=== PATIENT | female | born 1955 | race Caucasian/White ===

== ENCOUNTER 2017-06-15 14:31 | Observation (INO) | payer SELFPAY ==
[2017-06-15 14:34] VITALS: BP 216/104; PULSE 73; RESP 12; TEMP 98.4; O2SAT 99
[2017-06-15 15:10] LABS: AUTOMATED NEUTROPHIL # 1.3 TH/MM3 (1.8-7.7); BASOPHIL % 0.5 % (0.0-2.0); EOSINOPHIL # 0.2 TH/MM3 (0-0.4); EOSINOPHIL % 5.2 % (0.0-4.0); HEMATOCRIT 42.4 % (35.0-46.0); HEMO FLAGS DIFF FINAL; LYMPH % 36.9 % (9.0-44.0); LYMPHOCYTE # 1.1 TH/MM3 (1.0-4.8); MEAN CELL VOLUME 89.3 FL (80.0-100.0); MEAN CORPUSCULAR HEMOGLOBIN 29.9 PG (27.0-34.0); MEAN CORPUSCULAR HGB CONC 33.5 % (32.0-36.0); MONO % 15.4 % (0.0-8.0); PLATELET COUNT 133 TH/MM3 (150-450); RED BLOOD COUNT 4.75 MIL/MM3 (4.00-5.30); RED CELL DISTRIBUTION WIDTH 14.8 % (11.6-17.2)
[2017-06-15 15:19] LABS: APTT (PATIENT) 34.1 SEC (24.3-30.1); INTERNATIONAL NORMALIZED RATIO 1.1 RATIO; PROTHROMBIN TIME - PATIENT 12.1 SEC (9.8-11.6)
[2017-06-15 15:38] LABS: ANION GAP 5 MEQ/L (5-15); BICARBONATE 27.7 MEQ/L (21.0-32.0); BLOOD UREA NITROGEN 18 MG/DL (7-18); CHLORIDE 106 MEQ/L (98-107); GLOMERULAR FILTRATION RATE 63 ML/MIN (>89); MAGNESIUM 2.4 MG/DL (1.5-2.5); SODIUM (NA) 139 MEQ/L (136-145)
[2017-06-15 15:41] LABS: CREATINE KINASE 67 U/L (26-192)
--- NOTE | 2017-06-15 16:07 | RADRPT ---
EXAM DATE/TIME: 06/15/2017 15:22 [place] COMPARISON: No previous studies available for comparison. INDICATIONS : Chest pressure, left arm pain and back pain today. MEDICAL HISTORY : None. SURGICAL HISTORY : None. ENCOUNTER: Initial ACUITY: 1 day PAIN SCORE: 8/10 LOCATION: Bilateral chest FINDINGS: PA and lateral views of the chest demonstrate the lungs to be symmetrically aerated without evidence of mass, infiltrate or effusion. The cardiomediastinal contours are unremarkable. Osseous structure s are intact. Scoliotic curvature. CONCLUSION: No acute disease. Edu Ybarra Jr., MD on June 15, 2017 at 16:04 Board Certified Radiologist. This report was verified electronically.
--- NOTE | 2017-06-15 16:38 | PD ---
HPI Chief Complaint: Chest Pain Time Seen by Provider: 16:32 Travel History International Travel<30 days: No Contact w/Intl Traveler<30days: No Traveled to known affect area: No History of Present Illness HPI 61-year-old female patient presents to the ER today because of left arm discomfort that initially was sharp and then started going into her chest, she states it felt pressure-like, but is now getting better, is about a 1-2 out of 10 now. She denies any nausea, shortness of breath, or any other symptoms. She also mentions a headache currently. She denies any previous episodes. Modifying Factors: None Associated Signs & Symptoms: Chest discomfort, left arm discomfort, headache Risk Factors: None PFSH Past Medical History Medical History: Denies Significant Hx Tetanus Vaccination: Unknown Influenza Vaccination: No ?: Not Menopausal: Yes Tubal Ligation: Yes Social History Alcohol Use: No Tobacco Use: No Substance Use: No Allergies-Medications (Allergen,Severity, Reaction): Coded Allergies: No Known Allergies (Unverified , 06/15/17) Reported Meds & Prescriptions Reported Meds & Active Scripts Active No Active Prescriptions or Reported Medications Review of Systems Except as stated in HPI: all other systems reviewed are Neg Physical Exam Narrative GENERAL: Well-developed elderly white female patient currently in no acute distress. Awake and oriented 3. SKIN: Focused skin assessment warm/dry. HEAD: Atraumatic. Normocephalic. EYES: Pupils equal and round. No scleral icterus. No injection or drainage. ENT: No nasal bleeding or discharge. Mucous membranes pink and moist. NECK: Trachea midline. No JVD. CARDIOVASCULAR: Regular rate and rhythm. No murmur appreciated. Pulses are present and equal bilaterally. RESPIRATORY: No accessory muscle use. Clear to auscultation. Breath sounds equal bilaterally. GASTROINTESTINAL: Abdomen soft, non-tender, nondistended. Hepatic and splenic margins not palpable. MUSCULOSKELETAL: No obvious deformities. No clubbing. No cyanosis. No edema. NEUROLOGICAL: Awake and alert. No obvious cranial nerve deficits. Motor grossly within normal limits. Normal speech. PSYCHIATRIC: Appropriate mood and affect; insight and judgment normal. Data Data Last Documented VS Vital Signs Date Time Temp Pulse Resp B/P (MAP) Pulse Ox O2 Delivery O2 Flow Rate FiO2 06/15/17 14:34 98.4 73 12 216/104 (141) 99 Orders Orders Electrocardiogram (06/15/17 14:40) Basic Metabolic Panel (Bmp) (06/15/17 14:40) Ckmb (Isoenzyme) Profile (06/15/17 14:40) Complete Blood Count With Diff (06/15/17 14:40) Magnesium (Mg) (06/15/17 14:40) Prothrombin Time / Inr (Pt) (06/15/17 14:40) Act Partial Throm Time (Ptt) (06/15/17 14:40) Troponin I (06/15/17 14:40) Lipase (06/15/17 14:40) Chest, Pa & Lat (06/15/17 14:40) Admit Order (Ed Use Only) (06/15/17 16:32) Labs Laboratory Tests Test 06/15/17 14:53 White Blood Count 3.0 TH/MM3 Red Blood Count 4.75 MIL/MM3 Hemoglobin 14.2 GM/DL Hematocrit 42.4 % Mean Corpuscular Volume 89.3 FL Mean Corpuscular Hemoglobin 29.9 PG Mean Corpuscular Hemoglobin Concent 33.5 % Red Cell Distribution Width 14.8 % Platelet Count 133 TH/MM3 Mean Platelet Volume 8.6 FL Neutrophils (%) (Auto) 42.0 % Lymphocytes (%) (Auto) 36.9 % Monocytes (%) (Auto) 15.4 % Eosinophils (%) (Auto) 5.2 % Basophils (%) (Auto) 0.5 % Neutrophils # (Auto) 1.3 TH/MM3 Lymphocytes # (Auto) 1.1 TH/MM3 Monocytes # (Auto) 0.5 TH/MM3 Eosinophils # (Auto) 0.2 TH/MM3 Basophils # (Auto) 0.0 TH/MM3 CBC Comment DIFF FINAL Differential Comment Prothrombin Time 12.1 SEC Prothromb Time International Ratio 1.1 RATIO Activated Partial Thromboplast Time 34.1 SEC Blood Urea Nitrogen 18 MG/DL Creatinine 0.90 MG/DL Random Glucose 123 MG/DL Calcium Level 8.9 MG/DL Magnesium Level 2.4 MG/DL Sodium Level 139 MEQ/L Potassium Level 4.0 MEQ/L Chloride Level 106 MEQ/L Carbon Dioxide Level 27.7 MEQ/L Anion Gap 5 MEQ/L Estimat Glomerular Filtration Rate 63 ML/MIN Total Creatine Kinase 67 U/L Troponin I LESS THAN 0.02 NG/ML Lipase 159 U/L MDM Medical Decision Making Medical Screen Exam Complete: Yes Emergency Medical Condition: Yes Medical Record Reviewed: Yes Interpretation(s) EKG shows NSR, no ST elevation or depression, and no arrhythmias. No significant T-wave inversions. Laboratory Tests Test 06/15/17 14:53 White Blood Count 3.0 TH/MM3 (4.0-11.0) Platelet Count 133 TH/MM3 (150-450) Monocytes (%) (Auto) 15.4 % (0.0-8.0) Eosinophils (%) (Auto) 5.2 % (0.0-4.0) Neutrophils # (Auto) 1.3 TH/MM3 (1.8-7.7) Prothrombin Time 12.1 SEC (9.8-11.6) Activated Partial Thromboplast Time 34.1 SEC (24.3-30.1) Random Glucose 123 MG/DL (74-106) Estimat Glomerular Filtration Rate 63 ML/MIN (>89) Troponin I LESS THAN 0.02 NG/ML Differential Diagnosis Chest pains: ACS versus dysrhythmias versus anxiety attack Narrative Course EKG did not show any signs of acute ST-T changes or any dysrhythmias. Chest x- rays unremarkable. Cardiac enzymes are negative. Patient's chest pain is improved now. At this point, my plan would be to admit her to chest pain center for further evaluation of chest pain. Diagnosis Primary Impression: Chest pain Admitting Information Admitting Physician Requests: Admit Scripts No Active Prescriptions or Reported Meds Uriah Brady MD Jun 15, 2017 16:38
[2017-06-15] MEDS ORDERED: ONDANSETRON HCL 4 MG/2 ML VIAL IV PUSH PRN (17:00)
[2017-06-15] MEDS ORDERED: NITROGLYCERIN 0.4 MG SL 25 TABS/BTL SL PRN (17:00)
[2017-06-15] MEDS ORDERED: ACETAMINOPHEN 500 MG CPLT PO PRN (17:00)
[2017-06-15] MEDS ORDERED: SODIUM CHLORIDE 0.9% FLUSH 10 ML FLUSH IV FLUSH PRN (17:00)
[2017-06-15 17:02] VITALS: BP 159/60; PULSE 65; RESP 14; O2SAT 99
--- NOTE | 2017-06-15 18:01 | HHI.HP ---
HPI Primary Care Physician No Primary Care Physician Chief Complaint Chest pain History of Present Illness 61-year-old female with no known medical problems, has not seen a primary care provider in 20 years, presents to emergency room for further evaluation of chest pressure. Onset this afternoon while reading. Location left arm, from shoulder to elbow, followed by pressure across her chest and back. Arm pain described as an ache. Severity 5/10. Duration 40 minutes. Associated symptoms include diaphoresis. Denied nausea, vomiting, or dyspnea. No known precipitating factors. No known relieving factors. States discomfort gradually went away. Denies similar pain in the past. Review of Systems General: No fatigue,weakness, fever, chills, recent illness, or change in appetite. Has not seen a general practitioner in 20 years. Works 2 jobs and on her day off cares for her elderly father. HEENT: No DIA, no vision changes, no nasal congestion or drainage CV: As stated above. No current CP or pressure. RESP: No SOB, cough, or wheeze. GI: No nausea, vomiting, bowel changes. No unintentional weight gain or weight loss. Endorses 15 pound weight gain last 1.5 years she attributes to decreased activity and diet. : No dysuria, urgency, frequency EXT: Chronic bilateral lower leg edema and varicosities. MS: No discomfort or change in ROM NEURO: No difficulty with balance, LOC, motor/sensory deficits PSYCH: No anxiety, depression SKIN: No rashes, no concerning lesions Past Family Social History Allergies: Coded Allergies: No Known Allergies (Unverified , 06/15/17) Past Medical History None Past Surgical History Tubal ligation Reported Medications Reported Meds & Active Scripts Active No Active Prescriptions or Reported Medications No vitamins or herbal supplements. Active Ordered Medications Current Medications Medications (Trade) Dose Ordered Sig/Jack Route Start Time Stop Time Status Last Admin (NS Flush) 2 ml UNSCH PRN IV FLUSH 06/15/17 17:00 (NS Flush) 2 ml BID IV FLUSH 06/15/17 21:00 (Tylenol) 500 mg Q4H PRN PO 06/15/17 17:00 (Zofran Inj) 4 mg Q6H PRN IV PUSH 06/15/17 17:00 (Nitrostat Sl) 0.4 mg Q5M PRN SL 06/15/17 17:00 (Aspirin) 325 mg DAILY PO 06/16/17 09:00 Family History Mother myocardial infarction at age 62. Social History No known diabetes, hypertension, or hyperlipidemia. Lifelong nonsmoker. Denies any alcohol or illegal drug use. . Works 2 jobs. Past cardiac testing None Physical Exam Vital Signs Vital Signs Date Time Temp Pulse Resp B/P (MAP) Pulse Ox O2 Delivery O2 Flow Rate FiO2 06/15/17 17:13 06/15/17 17:02 65 14 159/60 (93) 99 06/15/17 14:34 98.4 73 12 216/104 (141) 99 Physical Exam GENERAL: Alert WN, WD, NAD, pleasant, , obese female HEAD: NC, AT EYES: Sclera clear, conjunctiva without injection, pupils equal and round ENT: Mucous membranes pink and moist CV: RRR, without murmur, rub, gallop, no JVD, S1-S2 no S3-S4. RESP: Clear lungs throughout bilateral, no crackles, wheeze, rhonchi, symmetrical chest rise, nonlabored, able to speak in full sentences ABD: Soft, NT, ND, no masses, positive bowel tones, obese EXT: Pulses +24, +1 dependent bilateral lower extremity edema MS: Normal tone 4 extremities, no obvious deformities, full range of motion, bilateral lower extremities varicosities NEURO: CN II through CN XII grossly intact, motor strength 5/5 PSYCH: A+O 3, pleasant affect, appropriate speech, mood, insight and judgment SKIN: Normal turgor, normal texture, no lesions, no rashes, brisk cap refill, even hair distribution Laboratory Laboratory Tests Test 06/15/17 14:53 06/15/17 17:50 White Blood Count 3.0 Red Blood Count 4.75 Hemoglobin 14.2 Hematocrit 42.4 Mean Corpuscular Volume 89.3 Mean Corpuscular Hemoglobin 29.9 Mean Corpuscular Hemoglobin Concent 33.5 Red Cell Distribution Width 14.8 Platelet Count 133 Mean Platelet Volume 8.6 Neutrophils (%) (Auto) 42.0 Lymphocytes (%) (Auto) 36.9 Monocytes (%) (Auto) 15.4 Eosinophils (%) (Auto) 5.2 Basophils (%) (Auto) 0.5 Neutrophils # (Auto) 1.3 Lymphocytes # (Auto) 1.1 Monocytes # (Auto) 0.5 Eosinophils # (Auto) 0.2 Basophils # (Auto) 0.0 CBC Comment DIFF FINAL Differential Comment Prothrombin Time 12.1 Prothromb Time International Ratio 1.1 Activated Partial Thromboplast Time 34.1 Blood Urea Nitrogen 18 Creatinine 0.90 Random Glucose 123 Calcium Level 8.9 Magnesium Level 2.4 Sodium Level 139 Potassium Level 4.0 Chloride Level 106 Carbon Dioxide Level 27.7 Anion Gap 5 Estimat Glomerular Filtration Rate 63 Total Creatine Kinase 67 Troponin I LESS THAN 0.02 Lipase 159 Result Diagram: 06/15/17 1453 06/15/17 1453 Imaging Chest xray read by radiologist as no acute disease. Course EKG Normal sinus rhythm, axis deviation, no ST or T-segment changes Caprini VTE Risk Assessment Caprini VTE Risk Assessment: Mod/High Risk (score >= 2) Caprini Risk Assessment Model Point Value = 1 Point Value = 2 Point Value = 3 Point Value = 5 Age 41-60 Minor surgery BMI > 25 kg/m2 Swollen legs Varicose veins or History of unexplained or recurrent spontaneous Oral contraceptives or hormone replacement Sepsis (< 1 month) Serious lung disease, including pneumonia (< 1 month) Abnormal pulmonary function Acute myocardial infarction Congestive heart failure (< 1 month) History of inflammatory bowel disease Medical patient at bed rest Age 61-74 Arthroscopic surgery Major open surgery (> 45 min) Laparoscopic surgery (> 45 min) Malignancy Confined to bed (> 72 hours) Immobilizing plaster cast Central venous access Age >= 75 History of VTE Family history of VTE Factor V Leiden Prothrombin 30210I Lupus anticoagulant Anticardiolipin antibodies Elevated serum homocysteine Heparin-induced thrombocytopenia Other congenital or acquired thrombophilia Stroke (< 1 month) Elective arthroplasty Hip, pelvis, or leg fracture Acute spinal cord injury (< 1 month) Prophylaxis Regimen Total Risk Factor Score Risk Level Prophylaxis Regimen 0-1 Low Early ambulation 2 Moderate Order ONE of the following: *Sequential Compression Device (SCD) *Heparin 5000 units SQ BID 3-4 Higher Order ONE of the following medications: *Heparin 5000 units SQ TID *Enoxaparin/Lovenox 40 mg SQ daily (WT < 150 kg, CrCl > 30 mL/min) *Enoxaparin/Lovenox 30 mg SQ daily (WT < 150 kg, CrCl > 10-29 mL/min) *Enoxaparin/Lovenox 30 mg SQ BID (WT < 150 kg, CrCl > 30 mL/min) AND/OR *Sequential Compression Device (SCD) 5 or more Highest Order ONE of the following medications: *Heparin 5000 units SQ TID (Preferred with Epidurals) *Enoxaparin/Lovenox 40 mg SQ daily (WT < 150 kg, CrCl > 30 mL/min) *Enoxaparin/Lovenox 30 mg SQ daily (WT < 150 kg, CrCl > 10-29 mL/min) *Enoxaparin/Lovenox 30 mg SQ BID (WT < 150 kg, CrCl > 30 mL/min) AND *Sequential Compression Device (SCD) Assessment and Plan Assessment and Plan #1 Chest pain-[facility] chest pain center. Rule out with 3 sets of EKGs, cardiac enzymes, monitor overnight. Will be seen and evaluated by Dr. Keyla Johnson exam. Discussed likelihood of completing cardiac stress test in a.m. and this will be determined by [employer] worker. Patient grew up plan of care. Strongly encouraged and stressed the importance of establishing with a primary care provider. Information regarding [facility] and local [facility] discussed in length as currently she is uninsured. Made aware of other local clinics in the area as well. Importance of preventative care, medical management, and screening tools used in primary care discussed in length. Verbalizes importance of establishing with a PCP. Jenae Blas Jun 15, 2017 18:01
[2017-06-15 18:49] LABS: CREATINE KINASE 61 U/L (26-192)
[2017-06-15 19:20] VITALS: PULSE 64
[2017-06-15] MEDS ORDERED: SODIUM CHLORIDE 0.9% FLUSH 10 ML FLUSH IV FLUSH SCH (21:00)
[2017-06-15 21:35] VITALS: BP 169/89; PULSE 64; RESP 16; TEMP 98.1; O2SAT 95
[2017-06-15 22:00] LABS: CREATINE KINASE 47 U/L (26-192)
[2017-06-15 23:48] VITALS: BP 155/83; PULSE 62; RESP 17; TEMP 98; O2SAT 96
[2017-06-16 03:35] VITALS: PULSE 60
[2017-06-16 04:56] VITALS: BP 143/83; PULSE 65; RESP 16; TEMP 98.1; O2SAT 93
[2017-06-16 08:07] VITALS: O2SAT 97
[2017-06-16 08:16] VITALS: BP 167/89; PULSE 64; RESP 20; TEMP 98.1; O2SAT 95
[2017-06-16] MEDS ORDERED: amLODIPine BESYLATE 5 MG TAB PO SCH (09:00)
[2017-06-16] MEDS ORDERED: ASPIRIN 325 MG TAB PO SCH (09:00)
[2017-06-16] MEDS ORDERED: AMLO5TAB2 PO (10:12)
--- NOTE | 2017-06-16 10:13 | HHI.DCPOC ---
Discharge Care Plan Diagnosis: (1) Chest pain (2) Hypertension Goals to Promote Your Health * To prevent worsening of your condition and complications * To maintain your health at the optimal level Directions to Meet Your Goals Take your medications as prescribed Follow your dietary instruction Follow activity as directed Keep your appointments as scheduled Take your immunizations and boosters as scheduled If your symptoms worsen call your PCP, if no PCP go to Urgent Care Center or Emergency Room Smoking is Dangerous to Your Health. Avoid second hand smoke Call the 24-hour hour crisis hotline for domestic abuse at John Hurtado Jun 16, 2017 10:13
--- NOTE | 2017-06-16 14:41 | EKG ---
Date Performed: 06/15/2017 Time Performed: 14:44:46 PTAGE: 61 years EKG: Sinus rhythm BORDERLINE LEFT AXIS DEVIATION MINIMAL VOLTAGE CRITERIA FOR LVH, CONSIDER NORMAL VARIANT BORDERLINE ECG NO PREVIOUS TRACING DOCTOR: Keyla Johnson Interpretating Date/Time 06/16/2017 14:39:05
--- NOTE | 2017-06-16 14:42 | EKG ---
Date Performed: 06/15/2017 Time Performed: 18:46:36 PTAGE: 61 years EKG: Sinus rhythm MINIMAL VOLTAGE CRITERIA FOR LVH, CONSIDER NORMAL VARIANT BORDERLINE ECG Since PREVIOUS TRACING , no significant change noted PREVIOUS TRACIN06/15/2017 14.44 DOCTOR: Keyla Johnson Interpretating Date/Time 06/16/2017 14:39:42
--- NOTE | 2017-06-16 14:43 | EKG ---
Date Performed: 06/15/2017 Time Performed: 21:45:13 PTAGE: 61 years EKG: Sinus rhythm NORMAL ECG Since PREVIOUS TRACING , no significant change noted PREVIOUS TRACIN06/15/2017 18.46 DOCTOR: Keyla Johnson Interpretating Date/Time 06/16/2017 14:40:59
--- NOTE | 2017-06-16 14:45 | TR ---
Date Performed: 06/16/2017 Time Performed: 09:09:40 DOCTOR: Keyla Johnson DRUG LIST: CLINICAL HISTORY: REASON FOR TEST: Chest pain REASON FOR ENDING: OBSERVATION: CONCLUSION: GURJIT PROTOCOL. NO CP. TEST STOPPED AFTER EXCEEDING GOAL HR SECONDARY TO SOB AND LEG FATIGUE.Maximum TA=702 % Max HR Achieved=94.0% Maximum RJ=195/88 Total Exercise Time=7:01 COMMENTS:
== END 2017-06-16 11:32 | disposition home or self-care (01) ==
LOC: NEPC 14:31 → NEDA 16:34 → NEPGCP 17:19
PROVIDERS: ADMIT Internal Medicine Cardiovascular Disease; ATTEND Internal Medicine Cardiovascular Disease
DX: R07.89 Other chest pain (principal); I10 Essential (primary) hypertension; R51 Headache; M79.602 Pain in left arm; M54.5 Low back pain; R60.0 Localized edema
CPT/HCPCS: 71020; 80048; 82550; 83690; 83735; 84484; 85025; 85610; 85730; 93005; 93017; 99285; G0378